=== PATIENT | female | born 1965 | race Caucasian/White ===

== ENCOUNTER 2018-06-01 14:15 | Outpatient (CLI) | payer BC ==
[~2018-06-01] VITALS: Ht 157.5 cm; Wt 150.0 kg
[~2018-06-01 14:15] MED LIST: IBUP-1985 PO
[2018-06-01 14:19] VITALS: BP 149/80
== END 2018-06-01 15:05 | disposition home or self-care (01) ==
LOC: ORTHO 14:15
PROVIDERS: ATTEND Nurse Practitioner Family
DX: S92.324A Nondisplaced fracture of second metatarsal bone, right foot, initial encounter for closed fracture (principal); S93.491A Sprain of other ligament of right ankle, initial encounter; X58.XXXA Exposure to other specified factors, initial encounter; Y93.89 Activity, other specified; Y92.89 Other specified places as the place of occurrence of the external cause; Y99.8 Other external cause status
CPT/HCPCS: 99213

== ENCOUNTER 2018-06-22 14:16 | Outpatient (CLI) | payer OTHER ==
[2018-06-22 14:16] VITALS: BP 150/91
== END 2018-06-22 15:05 | disposition home or self-care (01) ==
LOC: ORTHO 14:16
PROVIDERS: ATTEND Nurse Practitioner Family
DX: S92.324D Nondisplaced fracture of second metatarsal bone, right foot, subsequent encounter for fracture with routine healing (principal); S93.491D Sprain of other ligament of right ankle, subsequent encounter; X58.XXXD Exposure to other specified factors, subsequent encounter
CPT/HCPCS: 73630; 99213

== ENCOUNTER 2023-02-19 13:48 | Emergency (ER) | payer OTHER ==
[~2023-02-19] VITALS: Ht 157.5 cm; Wt 70.0 kg
[2023-02-19 14:24] LABS: BASOPHILS % (AUTO) 0.3 % (0-1); EOSINOPHILS % (AUTO) 0.1 % (0-6); HEMATOCRIT 35.4 % (35.0-45.0); HEMOGLOBIN 12.2 g/dl (12.0-16.0); LYMPHOCYTES # (AUTO) 0.5 X10'3 (1.1-4.8); MEAN CORPUSCULAR HEMOGLOBIN 29.8 PG (27.0-31.0); MEAN CORPUSCULAR HGB CONC 34.4 g/dL (33.0-36.5); MEAN CORPUSCULAR VOLUME 86.6 FL (78-98); MEAN PLATELET VOLUME 6.7 FL (7.4-10.4); MONOCYTES # (AUTO) 0.4 X10'3 (0-0.9); MONOCYTES % (AUTO) 7.9 % (2-12); NEUTROPHILS # (AUTO) 4.1 X10'3 (1.8-7.7); NEUTROPHILS % (AUTO) 81.7 % (42-75); PLATELET COUNT 230 X10'3 (140-440); RED BLOOD COUNT 4.09 X10'6 (4.20-5.60); RED CELL DISTRIBUTION WIDTH 12.4 % (11.5-14.5)
[2023-02-19 14:33] LABS: ALANINE AMINOTRANSFERASE 93 U/L (12-78); ALBUMIN 3.2 G/DL (3.4-5.0); ALBUMIN/GLOBULIN RATIO 0.7 (1.1-1.5); ALKALINE PHOSPHATASE 110 IU/L (46-116); ANION GAP 9 (8-16); ASPARTATE AMINO TRANSFERASE 58 U/L (10-37); BILIRUBIN,TOTAL 0.8 MG/DL (0.1-1.0); BLOOD UREA NITROGEN 12 MG/DL (7-18); BUN/CREATININE RATIO 11.2 (10.0-20.0); CALCIUM 8.7 MG/DL (8.5-10.1); CHLORIDE 98 MMOL/L (99-107); CREATININE 1.07 MG/DL (0.40-0.90); GLUCOSE 219 MG/DL (70-104); POTASSIUM 4.2 MMOL/L (3.5-5.1); SODIUM 134 MMOL/L (135-145); TOTAL CARBON DIOXIDE 27.5 MMOL/L (24-32); TOTAL PROTEIN 7.8 G/DL (6.4-8.2); eGFR 53 ML/MIN
[2023-02-19 14:34] LABS: D-DIMER 1.41 MG/L FEU (0-0.50)
[2023-02-19 14:39] LABS: MAGNESIUM 1.8 MG/DL (1.5-2.4)
[2023-02-19] MEDS ORDERED: iohexol 350MG/ML 100ml bottle IV ONE (15:00)
[2023-02-19 15:37] LABS: CLARITY,URINE CLEAR (Clear); COLOR,URINE YELLOW (Yellow); GLUCOSE, URINE NEGATIVE (Neg); KETONES,URINE 15 mg/dl (Neg); LEUKOCYTE ESTERASE ,URINE NEGATIVE (Neg); NITRITES, URINE NEGATIVE (Neg); OCCULT BLOOD,URINE MODERATE (Neg); PROTEIN,URINE 30 mg/dl (Neg)
[2023-02-19 15:44] LABS: UA COLLECTION TYPE CLN CATCH MIDSTREAM
[2023-02-19 15:45] LABS: BACTERIA,URINE NONE SEEN /HPF (Neg); MUCUS STRANDS FEW /LPF (Neg); RBC,URINE 0-2 /HPF (0-2); SQUAMOUS EPITHELIAL CELL,UR FEW /LPF (FEW); WBC,URINE NONE SEEN /HPF (0-4)
[2023-02-19] MEDS ORDERED: CefTRIAXone 2gm/D5W 50ml BAG 50 ML IV ONE (15:50)
[2023-02-19] MEDS ORDERED: azithromycin 250mg tablet PO ONE (16:00)
[2023-02-19] MEDS ORDERED: amox tr/potassium clavulanate 875/125mg TAB PO ONE (16:00)
[2023-02-19] MEDS ORDERED: ondansetron/PF 4mg/2ml inj IV ONE (16:00)
[2023-02-19] MEDS ORDERED: AMOX-115 PO (16:04)
[2023-02-19] MEDS ORDERED: AZIT-83 PO (16:04)
[2023-02-19 16:51] VITALS: BP 120/70
== END 2023-02-19 16:54 | disposition home or self-care (01) ==
LOC: ER 13:50
DX: J18.9 Pneumonia, unspecified organism (principal); Z79.899 Other long term (current) drug therapy
CPT/HCPCS: 36415; 71045; 71275; 80053; 81001; 83735; 83880; 84145; 84484; 85025; 85379; 96365; 99285; J0696; J3490; Q9967